=== PATIENT | female | born 1960 | race Caucasian/White ===

== ENCOUNTER → 2021-03-21 11:28 | Outpatient (BNVA) | payer MEDICARE, MEDICAID, SELFPAY | PROVIDERS: PCP Family Medicine; Visit Provider Internal Medicine | DX: G47.39 Other sleep apnea (principal); G47.34 Idiopathic sleep related nonobstructive alveolar hypoventilation; G47.31 Primary central sleep apnea; Z78.9 Other specified health status | CPT/HCPCS: 99202 ==

== ENCOUNTER 2021-04-04 13:55 | Outpatient (REF) | payer MEDICARE, MEDICAID, SELFPAY ==
--- NOTE | 2021-04-04 14:53 | PFT_ITS ---
FLOWS: FEV1 of 79% of predicted at 2.05 L. FVC 77% of predicted at 2.56 L. FEV1 to FVC ratio of 0.80. No bronchodilator response. LUNG VOLUMES: Total lung capacity 82% of predicted at 4.16 L. Residual volume 73% of predicted at 1.45 L. Slow vital capacity 88% of predicted at 2.70 L. Expiratory reserve volume 36% of predicted at 0.32 L. Diffusion capacity is mildly decreased. IMPRESSION: No obstructive or restrictive ventilatory defect. No bronchodilator response. Decreased expiratory reserve volume suggests extrathoracic restriction likely secondary to abdominal obesity. Decreased diffusion capacity suggests emphysema. MD LENARD Lang/MODL / [id number]
== END 2021-04-04 13:56 | disposition home or self-care (01) ==
LOC: HO.RESP 13:55
PROVIDERS: PCP Family Medicine; Visit Provider Internal Medicine
DX: G47.31 Primary central sleep apnea (principal); G47.34 Idiopathic sleep related nonobstructive alveolar hypoventilation
CPT/HCPCS: 94060; 94727; 94729; 99212

== ENCOUNTER → 2022-12-04 13:12 | Outpatient (BNVA) | payer MEDICARE, MEDICAID, SELFPAY | PROVIDERS: PCP Family Medicine; Visit Provider Anesthesiology | DX: M16.0 Bilateral primary osteoarthritis of hip (principal); M46.1 Sacroiliitis, not elsewhere classified; M47.816 Spondylosis without myelopathy or radiculopathy, lumbar region; G58.9 Mononeuropathy, unspecified; G89.4 Chronic pain syndrome | CPT/HCPCS: 99202 ==

== ENCOUNTER 2022-12-09 15:15 | Outpatient (REF) | payer MEDICARE, MEDICAID, SELFPAY ==
--- NOTE | ~2022-12-09 | XR_ITS ---
EXAMINATION: XR hand RT min 3V, XR hand LT min 3V CLINICAL INFORMATION: Reason for Exam bilat hand pain COMPARISON: None. TECHNIQUE: AP, lateral, and oblique views of the bilateral hands XR/XR hand RT min 3V FINDINGS/IMPRESSION: * No acute fracture or dislocation. * Joint spaces are maintained without significant degenerative change. * No soft tissue abnormality. Mild diffuse osteopenia.
--- NOTE | ~2022-12-09 | XR_ITS ---
EXAMINATION: XR hand RT min 3V, XR hand LT min 3V CLINICAL INFORMATION: Reason for Exam bilat hand pain COMPARISON: None. TECHNIQUE: AP, lateral, and oblique views of the bilateral hands XR/XR hand LT min 3V FINDINGS/IMPRESSION: * No acute fracture or dislocation. * Joint spaces are maintained without significant degenerative change. * No soft tissue abnormality. Mild diffuse osteopenia.
--- NOTE | ~2022-12-09 | XR_ITS ---
EXAMINATION: XR BILATERAL HIPS WITH AP PELVIS CLINICAL INFORMATION: Hip pain COMPARISON: None TECHNIQUE: AP view of the pelvis and single views of each hip were obtained. FINDINGS: The bones and soft tissues are normal. No fracture. Sacroiliac and hip joints are normal. Pubic symphysis is normal. No abnormal soft tissue calcifications. XR/XR hip BI w PEL1V IMPRESSION: Normal pelvis and hips.
== END 2022-12-09 15:16 | disposition home or self-care (01) ==
LOC: HO.XRAY 15:15
PROVIDERS: PCP Family Medicine; Visit Provider Anesthesiology
DX: M79.641 Pain in right hand (principal); M79.642 Pain in left hand; M16.0 Bilateral primary osteoarthritis of hip
CPT/HCPCS: 73130; 73521

== ENCOUNTER 2023-01-14 07:11 | Outpatient (REF) | payer MEDICARE, MEDICAID, SELFPAY ==
--- NOTE | ~2023-01-14 | FL_ITS ---
EXAMINATION: XR FLUOROSCOPY WITH IMAGES CLINICAL INFORMATION: Sacroiliitis. COMPARISON: None. TECHNIQUE: Fluoroscopy Supervised By: David. Fluoroscopy Time: 0.3 minutes Cumulative Dose: 10 mGy. DAP: 2.6 Gycm2. Images: 2. FINDINGS: Intraoperative fluoroscopic images demonstrate needle placement and contrast injection of the bilateral inferior sacroiliac joints. There are postsurgical changes to the lower lumbar sacral spine. FL/FL guidance in treatment room IMPRESSION: Fluoroscopy guidance for pain management procedure.
== END 2023-01-14 07:12 | disposition home or self-care (01) ==
LOC: CF 07:11
PROVIDERS: Visit Provider Anesthesiology
DX: M46.1 Sacroiliitis, not elsewhere classified (principal); M47.816 Spondylosis without myelopathy or radiculopathy, lumbar region; G89.4 Chronic pain syndrome
CPT/HCPCS: 27096; J2795

== ENCOUNTER 2023-01-28 06:32 | Outpatient (REF) | payer MEDICARE, MEDICAID, SELFPAY | END 2023-01-28 06:33 | disposition home or self-care (01) | LOC: CF 06:32 | PROVIDERS: Visit Provider Anesthesiology | DX: M16.0 Bilateral primary osteoarthritis of hip (principal); M46.1 Sacroiliitis, not elsewhere classified; M47.816 Spondylosis without myelopathy or radiculopathy, lumbar region; G58.9 Mononeuropathy, unspecified; G89.4 Chronic pain syndrome | CPT/HCPCS: 64447 ==

== ENCOUNTER → 2023-02-03 12:13 | Outpatient (BNVA) | payer MEDICARE, MEDICAID, SELFPAY | PROVIDERS: PCP Family Medicine; Visit Provider Anesthesiology | DX: G89.4 Chronic pain syndrome (principal); M16.0 Bilateral primary osteoarthritis of hip; M46.1 Sacroiliitis, not elsewhere classified; M47.816 Spondylosis without myelopathy or radiculopathy, lumbar region; G58.9 Mononeuropathy, unspecified | CPT/HCPCS: Q3014 ==

== ENCOUNTER 2023-02-11 06:20 | Outpatient (REF) | payer MEDICARE, MEDICAID, SELFPAY ==
--- NOTE | ~2023-02-11 | FL_ITS ---
EXAMINATION: XR FLUOROSCOPY WITH IMAGES CLINICAL INFORMATION: M16.0 - Bilateral primary osteoarthritis of hip COMPARISON: None available. TECHNIQUE: Fluoroscopy Supervised By: Dr. Jose Alfredo Le. Fluoroscopy Time: 0.3 minutes. Cumulative Dose: 9.0 mGy. DAP: 2.37 Gycm2. Images: 2. FINDINGS: There is a spinal needle with tip at the superior lateral left hip joint. FL/FL guidance in treatment room IMPRESSION: Fluoroscopy for pain management procedure.
== END 2023-02-11 06:21 | disposition home or self-care (01) ==
LOC: CF 06:20
PROVIDERS: Visit Provider Anesthesiology
DX: M16.0 Bilateral primary osteoarthritis of hip (principal)
CPT/HCPCS: 20610